=== PATIENT | female | born 1955 | race Caucasian/White ===

== ENCOUNTER 2016-06-17 05:41 | Day surgery (SDC) | payer MEDICARE, OTHER ==
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
[2016-06-17] MEDS ORDERED: IV START KIT ONE (05:42)
[2016-06-17] MEDS ORDERED: LACTATED RINGERS 1,000 ML ONE ×2 (05:42→08:47)
[2016-06-17] MEDS ORDERED: PROPOFOL 20 ML IV ONE (06:54)
[2016-06-17] MEDS ORDERED: LIDOCAINE 2% (PRES FREE) 5 ML VIAL ONE (06:55)
[2016-06-17] MEDS ORDERED: FENTANYL 100 MCG/2 ML VIAL ONE ×2 (06:56→08:41)
[2016-06-17] MEDS ORDERED: MIDAZOLAM HCL 1 MG/ML 2ML VIAL ONE (06:56)
[2016-06-17] MEDS ORDERED: CEFAZOLIN SODIUM 1,000 MG VIAL ONE ×2 (07:36)
[2016-06-17] MEDS ORDERED: ATROPINE SULFATE 0.4 MG/1 ML VIAL IV PRN (07:54)
[2016-06-17] MEDS ORDERED: HYDRALAZINE HCL 20 MG/1 ML VIAL IV PRN (07:54)
[2016-06-17] MEDS ORDERED: ONDANSETRON 4 MG/2ML 2 ML VIAL IV PRN ×2 (07:54→09:21)
[2016-06-17] MEDS ORDERED: LABETALOL HCL 5 MG/ML 20ML VIAL IV PRN (07:54)
[2016-06-17] MEDS ORDERED: FENTANYL 100 MCG/2 ML VIAL IV PRN (07:54)
[2016-06-17] MEDS ORDERED: PROMETHAZINE HCL 25 MG/ML VIAL IM PRN (07:54)
[2016-06-17] MEDS ORDERED: LACTATED RINGERS 1,000 ML IV SCH ×2 (08:00→09:21)
[2016-06-17] MEDS ORDERED: ONDANSETRON 4 MG/2ML 2 ML VIAL ONE (08:14)
--- NOTE | 2016-06-17 08:47 | PCMBPN ---
Brief Post Op Note: Date of Procedure: 06/17/16 Start Time: 0800 Preoperative Diagnosis: 1. right 5th metacarpal base fracture Postoperative Diagnosis: 1. right 4th and 5th metacarpal base fractures Procedure: right 4th/5th metacarpal base open reduction and percutaneous pinning Surgeon: Frantz Jefferson MD Assist: Cricket Downs PA-C Anesthesia: Dhaval Hull Findings: as above Condition: stable to PACU Complications: none IV Fluids: 800 mLs of LR 0 Urine Output: 0 mLs Estimated Blood Loss: 10 mLs Tourniquet Time: 35 min at 250 mm Hg Specimens: none Implants: 0.045" k-wires x 3, 0.062" k-wire x 1; ulnar gutter splint Drains: none Frantz Jefferson MD
[2016-06-17] MEDS ORDERED: HYDROMORPHONE HCL 1 MG/ML SYRINGE ONE ×2 (08:48→09:09)
[2016-06-17] MEDS ORDERED: MEPERIDINE 25 MG/ML SYRINGE ONE ×2 (08:48→09:10)
[2016-06-17] MEDS: MEPERIDINE 25 MG/ML SYRINGE IV PRN ×2 (08:51→09:11)
[2016-06-17] MEDS: HYDROMORPHONE HCL 1 MG/ML SYRINGE IV PRN ×2 (08:53→09:08)
--- NOTE | 2016-06-17 08:55 | RAD ---
Exam: Two-view right hand COMPARISON: 06/12/2016 INDICATION: Right hand percutaneous pinning. Findings: Fluoroscopy was provided for Dr. Jefferson. 2 minutes 43 seconds of fluoroscopy time was utilized. 3 static images were submitted for interpretation. These images demonstrate a total of 4 percutaneous pins placed in the right hand. The longer pins traverse the third through fifth metacarpals at the level of the proximal and mid diaphyses. 2 smaller pins traverse the base of the fifth metacarpal, and one extends into the fourth metacarpal. There is improved alignment of the fracture fragments of the fifth metacarpal. Although possible nondisplaced hamate fracture was described on the prior plain radiographs, bone detail on this exam is limited due to fluoroscopic technique and therefore this cannot be confirmed. Impression: Fluoroscopy was provided for Dr. Jefferson for percutaneous pinning of the right hand.
[2016-06-17] MEDS ORDERED: ACETAMINOPHEN 325 MG TABLET PO PRN (09:21)
[2016-06-17] MEDS ORDERED: HYDROMORPHONE HCL 1 MG/ML SYRINGE IV PRN (09:21)
[2016-06-17] MEDS ORDERED: OXYCODONE HCL 5 MG TABLET PO PRN (09:21)
[2016-06-17] MEDS ORDERED: DIPHENHYDRAMINE HCL 50 MG/1 ML VIAL IV PRN (09:21)
[2016-06-17] MEDS ORDERED: HYDROMORPHONE HCL 0.5 MG/0.5 ML SYRINGE IV PRN (09:48)
[2016-06-17] MEDS ORDERED: OXYCODONE HCL 5 MG TABLET ONE (09:55)
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
== END 2016-06-17 10:48 | disposition home or self-care (01) ==
LOC: SDC 05:41
PROVIDERS: ATTEND Orthopaedic Surgery
PROC: 0PS Upper Bones, Reposition (ICD-10-PCS; principal; 2016-06-17)
PROC: 0PS Upper Bones, Reposition (ICD-10-PCS; 2016-06-17)
DX: S62.316A Displaced fracture of base of fifth metacarpal bone, right hand, initial encounter for closed fracture (principal); W19.XXXA Unspecified fall, initial encounter; Z87.891 Personal history of nicotine dependence; Z88.8 Allergy status to other drugs, medicaments and biological substances; Z88.2 Allergy status to sulfonamides; I10 Essential (primary) hypertension; E07.9 Disorder of thyroid, unspecified; J45.909 Unspecified asthma, uncomplicated
CPT/HCPCS: 76000; 73120; 26615 ×2; J0690 ×2; J2175 ×2; J1170 ×2; J3010 ×2; A9270; J2250; J2405; J7120 ×2